=== PATIENT | male | born 1995 | race Caucasian/White ===

== ENCOUNTER 2020-09-28 09:43 | Emergency (ER) | payer OTHER ==
[~2020-09-28 09:43] MED LIST: BACTROBAN OINT22 GM EXT; IBUPROFEN600 MG PO
[2020-09-28] MEDS ORDERED: CYCLOBENZAPRINE5 MG PO (11:49)
[2020-09-28] MEDS ORDERED: NAPROSYN500 MG PO (11:49)
== END 2020-09-28 12:40 | disposition home or self-care (01) ==
LOC: ER1 09:43
DX: S20.211A Contusion of right front wall of thorax, initial encounter (principal); S40.011A Contusion of right shoulder, initial encounter; F17.200 Nicotine dependence, unspecified, uncomplicated; V49.40XA Driver injured in collision with unspecified motor vehicles in traffic accident, initial encounter; Y92.410 Unspecified street and highway as the place of occurrence of the external cause
CPT/HCPCS: 71111; 73030; 99283